=== PATIENT | female | born 1975 | race Caucasian/White ===

== ENCOUNTER 2016-10-17 19:31 | Emergency (ER) | payer OTHER, MEDICAID ==
[2016-10-17 19:57] VITALS: BP 126/93
[2016-10-17 21:04] LABS: Urine Bilirubin Negative (NEGATIVE); Urine Blood 250 /ul (NEGATIVE); Urine Ketone Negative (NEGATIVE); Urine Nitrite Negative (NEGATIVE); Urine Protein 15 mg/dL (NEGATIVE); Urine Specific Gravity >=1.030 SP.GR. (1.005-1.010); Urine Urobilinogen Normal (NORMAL); Urine pH 5.5 pH (5.0-7.0)
[2016-10-17 21:16] LABS: Urine Appearance Turbid; Urine Color Yellow; Urine RBC 25-50 /hpf (0-5); Urine WBC 25-50 /hpf (0-5)
[2016-10-17 21:17] LABS: Urine Bacteria 2+
== END 2016-10-17 22:55 | disposition left against medical advice (07) ==
LOC: ER 19:31
DX: Z53.21 Procedure and treatment not carried out due to patient leaving prior to being seen by health care provider (principal)

== ENCOUNTER 2016-10-20 11:39 | Emergency (ER) | payer OTHER, MEDICAID ==
[2016-10-20 12:03] LABS: Urine Bilirubin Negative (NEGATIVE); Urine Color Yellow; Urine Ketone Negative (NEGATIVE)
[2016-10-20 12:06] LABS: Urine Blood 150 /ul (NEGATIVE); Urine Nitrite Negative (NEGATIVE); Urine Protein Negative (NEGATIVE); Urine Urobilinogen Normal (NORMAL); Urine pH 5.5 pH (5.0-7.0)
[2016-10-20] MEDS ORDERED: NORMAL SALINE 1,000 ML IV ONE (12:06)
[2016-10-20] MEDS ORDERED: KETOROLAC TROMETHAMINE 30 MG/ML VIAL IV ONE (12:06)
[2016-10-20] MEDS ORDERED: ONDANSETRON HCL/PF 2 MG/ML VIAL IV ONE (12:07)
[2016-10-20] MEDS ORDERED: KETOROLAC TROMETHAMINE 30 MG/ML VIAL ONE (12:13)
[2016-10-20] MEDS ORDERED: ONDANSETRON HCL/PF 2 MG/ML VIAL ONE (12:13)
[2016-10-20 12:16] LABS: Urine Bacteria 2+; Urine RBC 0-5 /hpf (0-5); Urine WBC 25-50 /hpf (0-5)
[2016-10-20 12:17] LABS: Urine Appearance Slightly Cloudy
[2016-10-20] MEDS ORDERED: KETOROLAC TROMETHAMINE 60 MG/2 ML VIAL IM ONE ×2 (12:32→12:35)
[2016-10-20] MEDS ORDERED: PROMETHAZINE HCL 50 MG/ML AMPUL IM ONE ×2 (12:32→12:34)
--- NOTE | 2016-10-20 12:35 | ERNOTE ---
ER Female HPI Date of Service: 10/20/16 Stated Complaint: POST SURGERY PAIN Presenting Symptoms: other - pain in left lower flank area radiating around into groin accompained with N/V Time Seen by Provider: 10/20/16 11:55 Source: patient Exam Limitations: no limitations Immunizations: IMMUNIZATION HX Immunizations Up to Date Yes History of Influenza Vaccine Yes Hx Pneumococcal Vaccination No Allergies/Adverse Reactions: Allergies amoxicillin Adverse Reaction (Mild, Verified 10/20/16 11:50) GI UPSET cephalexin Adverse Reaction (Mild, Verified 10/20/16 11:50) GI UPSET meperidine HCl [From Demerol] Adverse Reaction (Mild, Verified 10/20/16 11:50) Vomiting Penicillins Adverse Reaction (Mild, Verified 10/20/16 11:50) GI UPSET NITRITES Adverse Reaction (Mild, Uncoded 10/20/16 11:50) NITRITE OR NITRATE PRESERVATIVES CAUSE MIGRAINES Home Medications: HOME MEDICATIONS Propranolol HCl 60 mg PO BID 08/20/15 [Last Taken 09/19/16 06:30] Topiramate [Topamax] 100 mg PO BID 08/20/15 [Last Taken 09/18/16 22:00] Aspirin [Aspirin EC] 81 mg PO DAILY #30 tablet. 08/21/15 [Last Taken Unknown] Docusate Sodium [Colace] 100 mg PO BID 08/21/15 [Last Taken 09/18/16 22:00] Albuterol Sulfate [Proventil Hfa] 2 puff INH Q4H PRN 08/20/16 [Last Taken Unknown] Cranberry Extract [Cranberry] 500 mg PO BID 08/20/16 [Last Taken Unknown] Gabapentin [Neurontin] 300 mg PO HS 08/20/16 [Last Taken 09/18/16 22:00] Loratadine [Claritin] 10 mg PO DAILY 08/20/16 [Last Taken Unknown] Meclizine HCl [Antivert] 25 mg PO TID PRN 08/20/16 [Last Taken Unknown] Melatonin/Pyridoxine HCl (B6) [Melatonin 10 mg Tablet] 1 each PO HS 08/20/16 [ Last Taken 09/18/16 22:00] Multivitamins [Multivitamin Daniela] 1 cap PO DAILY 08/20/16 [Last Taken Unknown] Naproxen Sodium [Aleve] 220 mg PO BID PRN 08/20/16 [Last Taken Unknown] Ondansetron HCl [Zofran] 4 mg PO Q4H PRN 08/20/16 [Last Taken Unknown] Rizatriptan Benzoate [Maxalt] 10 mg PO DAILY 08/20/16 [Last Taken Unknown] Venlafaxine HCl [Effexor Xr] 150 mg PO DAILY 08/20/16 [Last Taken 09/18/16 08:00 ] Oxycodone HCl/Acetaminophen [Percocet 5-325 mg Tablet] 1 each PO Q4H PRN #20 tablet 09/19/16 [Last Taken Unknown] Ciprofloxacin HCl [Cipro] 500 mg PO BID #14 tablet 10/20/16 [Last Taken Unknown] Ondansetron [Zofran Odt] 8 mg PO Q8H PRN #12 tab 10/20/16 [Last Taken Unknown] Oxycodone HCl/Acetaminophen [Percocet 5-325 mg Tablet] 1 each PO Q4H PRN #20 tablet 10/20/16 [Last Taken Unknown] Tamsulosin HCl [Flomax] 0.4 mg PO DAILY #14 cap.sr.24h 10/20/16 [Last Taken Unknown] - History of Present Illness Narrative: patient is a 41 y.o F with recent hysterectomy 09/19/16 who presents today complaining of left lower flank pain radiating into groin since Saturday. States pain and nausea progressively becoming more constant and severe since Saturday. States pain would lessen with Ibuprofen and with use of a heating pad but today home remedies are ineffective. States came here Saturday but "wait time was too long" so patient LWBS. Called Dr Corado and U/S which showed right ovarian cyst. Presents today in constant pain and nausea with multiple emesis. States had kidney stone 2 years ago and "this feels just like it" Date (Duration): 10/15/16 Timing: Present: constant, getting worse Quality: Present: moderate, stabbing Onset Location: Present: left flank Radiation: Present: groin Activities at Onset: Present: none Prior Abdominal Problems: Present: other - hysterectomy 09/19/16 Modifying Factors - (Improves): Present: other - states heating pad and ibuprofen originally helped but now is ineffective Modifying Factors - (Worsens): Present: coughing, lying down, movement, palpation, vomiting Associated Symptoms: Present: nausea, vomiting, low back pain Prior Treatment: Present: other - U/S Review of Systems - Review of Systems Constitutional: Present: See HPI, diaphoresis, other - states chills on Saturday. Absent: fever, weakness, fatigue, malaise EYE: Present: no symptoms reported ENT: Present: no symptoms reported Respiratory: Present: no symptoms reported. Absent: shortness of breath, wheezing, stridor Cardiology: Present: no symptoms reported. Absent: chest pain, palpitations, syncope Gastrointestinal/Abdominal: Present: nausea, vomiting, diarrhea, eating less, drinking less. Absent: abdominal pain Genitourinary: Present: no symptoms reported. Absent: frequency, pain, dysuria , hematuria Musculoskeletal: Present: no symptoms reported. Absent: muscle pain, neck pain Skin: Present: no symptoms reported. Absent: rash, lesions Neurological: Present: no symptoms reported. Absent: headache, weakness, numbness, tingling Endocrine: Present: no symptoms reported Hematologic/Lymphatic: Present: no symptoms reported Psych: Present: no symptoms reported - Patient's Past Medical History Patient History - Medical: Kidney stone, Migraines, Other Patient History - Cardiac/Respiratory: Asthma Patient History - Cancer: No Hx of Cancer Patient History - Surgical Procedures: D & C, Hysterectomy, Other - Family History Mother Family History - Medical: Arthritis, Hypothyroidism, Kidney stone Family History - Cardiac/Respiratory: CVA/Stroke, Hypertension, Myocardial Infarction Grandmother-Maternal Family History - Medical: , No pertinent hx Family History - Cardiac/Respiratory: No pertinent hx Father Family History - Medical: Diabetes Type 2 Family History - Cardiac/Respiratory: No pertinent hx Grandfather-Maternal Family History - Medical: , No pertinent hx Family History - Cardiac/Respiratory: Other Aunt Family History - Medical: , No pertinent hx Family History - Cardiac/Respiratory: No pertinent hx Uncle Family History - Medical: No pertinent hx Family History - Cardiac/Respiratory: No pertinent hx - Social History Living Situations: home Alcohol Use: none Drug Use: none ED Progress - Results and Orders Patient's Lab Results:: I have reviewed the patient's lab results. - Vital Signs Patient's Vital Signs:: I have reviewed the patient's vital signs. Vital Signs: Vital Signs 10/20/16 11:47 Temperature 34.4 C L Pulse Rate 78 Respiratory 14 Rate Blood Pressure 150/86 O2 Sat by Pulse 99 Oximetry - CT/Ultrasound CT/Ultrasound Narrative: Technique: CT Abdomen/Pelvis W/O Contrast Findings: Exam is limited due to lack of IV and oral contrast. Lung bases are clear. No nephrolithiasis appreciated. Reidentified parapelvic cysts on the left. There is very mild hydronephrosis. This is secondary to a 5 mm proximal left ureteral stone. No obstructive uropathy on the right. There is perinephric fat stranding and periureteric fat stranding surrounding the left kidney and ureter. Solid abdominal organs are intact and unremarkable on noncontrast imaging. No evidence for intestinal obstruction. The appendix is normal. There is diverticulosis and fecal retention without evidence for diverticulitis. The bladder is decompressed. There appears to be a 2 cm left cystic lesion within the adnexa which appears unchanged from prior exam. The uterus is surgically absent. No free air or free fluid. No loculated fluid collections. Osseous structures are intact. IMPRESSION: 1. 5 mm left proximal ureteral stone causing some mild hydronephrosis on the left. There is some periarterial fat stranding indicating inflammation. 2. Chronic findings are as detailed above Electronically signed by Cholo Thakur M.D.. - Progress/Reassessment Chief Complaint: Genitourinary Problem Progress:: Pain free at discharge Departure Clinical Impression: Ureteral colic, Ureteral calculus - Departure Disposition: Home Follow Up Needed Condition: Good Instructions: Renal Colic, [id number] Referrals: Markus Galvan MD [Associate] - Prescriptions: Ciprofloxacin HCl [Cipro] 500 mg PO BID #14 tablet Ondansetron [Zofran Odt] 8 mg PO Q8H PRN #12 tab PRN Reason: Nausea Oxycodone HCl/Acetaminophen [Percocet 5-325 mg Tablet] 1 each PO Q4H PRN #20 tablet PRN Reason: Pain Tamsulosin HCl [Flomax] 0.4 mg PO DAILY #14 cap.sr.24h
[2016-10-20 13:47] VITALS: BP 112/69
== END 2016-10-20 14:03 | disposition home or self-care (01) ==
LOC: ER 11:39
DX: N20.1 Calculus of ureter (principal); N23 Unspecified renal colic; Z90.710 Acquired absence of both cervix and uterus

== ENCOUNTER 2016-10-24 13:19 | Day surgery (SDC) | payer OTHER, MEDICAID ==
[~2016-10-24 13:19] MED LIST: KETOROLAC TROMETHAMINE 15 MG/ML VIAL IV PRN; LEVOFLOXACIN/D5W 150 ML IV PRN; METOCLOPRAMIDE HCL 5 MG/ML VIAL IV PRN; MORPHINE SULFATE 2 MG/ML DISP.SYRIN IV PRN; NORMAL SALINE 1,000 ML IV PRN; oxyCODONE HCL/ACETAMINOPHEN 1 TAB TABLET PO PRN
[2016-10-24] MEDS ORDERED: NORMAL SALINE 1,000 ML IV ONE (14:00)
--- NOTE | 2016-10-24 14:56 | OR ---
Operative Report - Dictated Report Narrative: Location: Main OR Anesthesia: General Surgeon: Dr. Aparicio Preoperative diagnosis: Left proximal ureteral stone(s) Postoperative diagnosis: Left mid/distal ureteral stone Procedure: #1 Cystoscopy with Bilateral retrograde pyelograms #2 left stone manipulation without removal with placement of a 6 x 24 double j stent Indications: 41-year-old female severe left-sided symptomatology. Discussed options with attempted trial of passage however she has failed and remain symptomatic. Wants to proceed with surgical intervention. Description: Consent obtained. Patient brought to the operating room where general endotracheal anesthesia was induced. Placed in the dorsal lithotomy position. Prepped and draped. Timeout taken. Rigid cystoscope introduced into the bladder with ease and quick cystoscopy revealed no tumors, stones or suspicious lesions . There is no evidence of active infection in the bladder. Right ureteric orifice was much narrower compared to left. Bilateral retrogrades obtained and interpreted by Dr. Galvan. Right ureter identified intubated with Super Stiff wire followed by 5 [place] Islander catheter and right retrograde obtained. 5-7 mL of Isovue was used to obtain retrograde. Distal and mid ureter without filling defects or hydronephrosis, proximal collecting system was likewise nonhydronephrotic, no obvious filling defects, delicate calyces. A few air bubbles did migrate secondary to the wire but this was confirmed on serial imaging. Prompt drainage upon removal Left ureter identified intubated with 5 [place] catheter and left retrograde obtained. Distal ureter normal up until just below the pelvic vessels where shadowing filling defect showed up consistent with ureteral stone. Ureter proximal to this was mildly hydronephrotic. Upper collecting system again mildly hydronephrotic with some blunting.. I was able to get a Super Stiff wire by the stone. I used a 5 [place] catheter to try and bumped the stone more proximally upon doing so there was prompt drainage of hydronephrotic urine urine had a gelatinous appearance to it. I aspirated some urine from the bladder sent it for culture just to make sure this wasn't infection. No rima pyuria, some blood. Dual lumen catheter introduced and the [place] wire was also advanced. [place] wire secured. Over the Super Stiff wire the flexible ureteroscope was then used and advanced into the ureter. I was able to get up the distal ureter to within 2 or 3 cm of the known location of the stone however ureteral caliber decreased significantly despite using 2 wires. With slow constant pressure and a push pull method on the scope I tried to get by the narrowing but the ureter would not give. Given this finding I felt that was in the patient's best interest to simply stent allow for passive dilation and come back at a different setting to hopefully try and avoid balloon dilation. 6 x 24 double-J stent was then placed over the safety wire under fluoroscopic guidance with good curls in the kidney and bladder. Urine sample post stone manipulation sent for culture. Specimen: Urine post manipulation for culture EBL: 5 ml Condition: tolerated procedure Important findings: Obstructing left ureteral calculus, ureteral narrowing distal to stone, successful manipulation and stenting. Some concern for possible infection on the left side based on hydronephrotic urine appearance. Follow-up: Next Saturday for definitive management. I will send her home on antibiotics.
[2016-10-24] MEDS ORDERED: MORPHINE SULFATE 4 MG/ML SYRG IV PRN (15:01)
[2016-10-24] MEDS ORDERED: NALOXONE HCL 0.4 MG/ML VIAL IV PRN (15:01)
[2016-10-24] MEDS ORDERED: diphenhydrAMINE HCL 50 MG/ML VIAL IV PRN (15:01)
[2016-10-24] MEDS ORDERED: PROMETHAZINE HCL 12.5 MG in DEXTROSE 5 % IN WATER 50 ML IV PRN ×2 (15:01)
[2016-10-24 16:39] VITALS: BP 120/72
== END 2016-10-24 13:20 | disposition home or self-care (01) ==
LOC: SUR 13:19 → AMB 13:19 → SUR 13:20
PROVIDERS: ATTEND Urology
PROC: 0TC78ZZ Extirpation of Matter from Left Ureter, Via Natural or Artificial Opening Endoscopic (ICD-10-PCS; 2016-10-24)
PROC: 0T778DZ Dilation of Left Ureter with Intraluminal Device, Via Natural or Artificial Opening Endoscopic (ICD-10-PCS; principal; 2016-10-24 17:50)
DX: N20.1 Calculus of ureter (principal)

== ENCOUNTER 2016-10-31 12:03 | Day surgery (SDC) | payer OTHER, MEDICAID ==
[~2016-10-31 12:03] MED LIST changes: -METOCLOPRAMIDE HCL 5 MG/ML VIAL IV PRN; -MORPHINE SULFATE 2 MG/ML DISP.SYRIN IV PRN
[2016-10-31] MEDS ORDERED: NORMAL SALINE 1,000 ML IV ONE (13:20)
--- NOTE | 2016-10-31 14:19 | OR ---
Operative Report - Dictated Report Narrative: Location: Main OR Anesthesia: General Surgeon: Dr. Aparicio Preoperative diagnosis: Left distal ureteral stone(s) Postoperative diagnosis: Same with very tight ureter distal to stone concerning for pre-existing stricture with extravasation noted during retrograde Procedure: #1 Cystoscopy with removal of previously placed left double-J stent, left retrograde, new 7 by multi length stent placement #2 attempted left flexible ureteroscopy failed secondary to pre-existing ureteral narrowing/stricture and evidence of ureteral extravasation during attempted ureteral dilation. Indications: 41-year-old female the pneumatic left ureteral calculus post failed trial of passage followed by left stone manipulation without removal and stenting. Ureteroscopy during original manipulation failed secondary to narrowing of distal ureter. After discussion of options patient presented today for attempted treatment after hopeful passive dilation. Description: Consent obtained. Patient brought to the operating room where general endotracheal anesthesia was induced. Placed in the dorsal lithotomy position. Prepped and draped. Timeout taken. Rigid cystoscope introduced into the bladder with ease and quick cystoscopy revealed no tumors, stones or suspicious lesions . Previously placed stent was identified grasped pulled per urethra. Super Stiff wire advanced without incident and stent removed. Wire was secured. I advanced the small flexible ureteroscope into the bladder and alongside the wire was able to intubate left ureteric orifice. I was able to advance to within a couple centimeters of the prior stone location. At that point ureter narrowed significantly. Wire was clearly intraluminal heading north. I advanced a second Super Stiff wire through the scope and tried to use both wires to bridge the ureter and navigated proximally. With slow constant pressure tried to advance but that area of ureter is definitely narrowed suspicious for pre-existing stricture. Location is a couple centimeters downstream from where stone was impacted on prior retrograde. I removed the wire leaving the scope downstream of the stricture and injected contrast to time outline length of stricture and location of stone. This was performed without incident and I could see that there is about 2 or 3 cm of ureter that are much more narrow when compared to the rest of the ureter followed by a shadowing filling defect cystoscopy with the known location of the stone. I left the safety wire in place and had nursing obtain a ureteral balloon dilator. At this point in the case portable fluoroscopy started in this behaving we needed to switch to a newer equipment. There was no advancement/ manipulation during this time. I went ahead and requested dual lumen catheter my thought being to inject contrast, try and get the stone further away from the narrowed segment of ureter to more successfully balloon and to possibly dilate stricture some get idea for how dense stricture is with this catheter. Once new fluoroscopy was established dual lumen catheter introduced navigated proximally. I injected contrast again outlining stone and strictured ureter. I slowly advanced dual lumen over Super Stiff wire there was some resistance but the ureter did start to give. As I advanced dual lumen catheter felt some gritty resistance again stone. Stopped pushing at that point and injected some contrast and could see a bit of extravasation medially. Given this finding I did not want to risk additional ureteral manipulation or did not want to balloon in this situation. As such I backed the dual lumen catheter out. I felt that was in the patient's best interest to upsize stent and again hopefully allow for passive dilation allow extravasation/perforation to subside/ heal and try to treat stone once this occurs to minimize risk to ureter. Using fluoroscopic guidance 7 by multi length stent successfully deployed. Specimen: None EBL: 5 ml Condition: tolerated procedure Important findings: Pre-existing narrowed/strictured ureter 2-3 cm in length downstream of location of ureteral calculus. Intraoperative urinary extravasation likely from attempted dilation of strictured ureter post- successful 7 [place]vian stenting. Follow-up: My plan is to go ahead and proceed in approximately a week to give ureter chance to heal and dilate with 7 [place]ian stent. Becomes a trickier surgery with the pre-existing stricture and the proximity of the stone to that strictured segment as ballooning in that area will be a bit difficult and I would much rather avoid that if possible. We'll need interventional radiology on standby given the difficulty of case so I plan on performing neck surgery in [place] in case I have trouble with ureter.
[2016-10-31] MEDS: oxyCODONE HCL/ACETAMINOPHEN 1 TAB TABLET PO PRN ×2 (15:14→15:46)
[2016-10-31 17:16] VITALS: BP 129/82
== END 2016-10-31 12:04 | disposition home or self-care (01) ==
LOC: AMB 12:03
PROVIDERS: ATTEND Urology
PROC: 0T768DZ Dilation of Right Ureter with Intraluminal Device, Via Natural or Artificial Opening Endoscopic (ICD-10-PCS; principal; 2016-10-31 14:15)
DX: N20.1 Calculus of ureter (principal); N13.5 Crossing vessel and stricture of ureter without hydronephrosis; E66.01 Morbid (severe) obesity due to excess calories; Z68.43 Body mass index [BMI] 50.0-59.9, adult

== ENCOUNTER 2016-11-07 12:56 | Day surgery (SDC) | payer OTHER, MEDICAID ==
[~2016-11-07 12:56] MED LIST changes: -KETOROLAC TROMETHAMINE 15 MG/ML VIAL IV PRN; +KETOROLAC TROMETHAMINE 30 MG/ML VIAL IV PRN; +LEVOFLOXACIN 500 MG TABLET PO PRN; -LEVOFLOXACIN/D5W 150 ML IV PRN; +METOCLOPRAMIDE HCL 5 MG/ML VIAL IV PRN; +MORPHINE SULFATE 2 MG/ML DISP.SYRIN IV PRN; -NORMAL SALINE 1,000 ML IV PRN; +ONDANSETRON HCL/PF 2 MG/ML VIAL IV PRN
[2016-11-07] MEDS ORDERED: LIDOCAINE HCL 10 APPL CARTRIDGE TP ONE (14:08)
--- NOTE | 2016-11-07 14:23 | OR ---
Operative Report - Dictated Report Narrative: Preoperative diagnosis: Indwelling stent Postoperative diagnosis: Same Anesthesia: None Procedure: Flexible cystoscopy with stent removal Indications: Indwelling stent Descritpion: Consent obtained. Patient prepped and drapped. Lidocaine jelly used to anesthetize urethra. Flexible scope inserted and navigated to bladder. Stent identified, grasped and pulled per urethra. Patient tolerated. EBL: 0 ml Specimen: None Condition: Tolerated procedure Follow-up: I will see her in roughly 1 month with ultrasound, voided urinalysis and creatinine prior. We'll discuss dietary recommendations at that time.
[2016-11-07 15:39] VITALS: BP 128/62
== END 2016-11-07 12:57 | disposition home or self-care (01) ==
LOC: AMB 12:56
PROVIDERS: ATTEND Urology
PROC: 0TP98DZ Removal of Intraluminal Device from Ureter, Via Natural or Artificial Opening Endoscopic (ICD-10-PCS; principal; 2016-11-07 14:30)
DX: N20.1 Calculus of ureter (principal); Z68.43 Body mass index [BMI] 50.0-59.9, adult

== ENCOUNTER 2017-08-08 06:05 | Day surgery (SDC) | payer OTHER ==
[~2017-08-08 06:05] MED LIST changes: +ACETAMINOPHEN 325 MG TABLET PO PRN; +DEXAMETHASONE SOD PHOSPHATE 10 MG/ML VIAL IV PRN; -KETOROLAC TROMETHAMINE 30 MG/ML VIAL IV PRN; -LEVOFLOXACIN 500 MG TABLET PO PRN; -METOCLOPRAMIDE HCL 5 MG/ML VIAL IV PRN; +MORPHINE SULFATE 10 MG/ML SYRG IV PRN; -MORPHINE SULFATE 2 MG/ML DISP.SYRIN IV PRN; +MORPHINE SULFATE 4 MG/ML SYRG IV PRN; +NORMAL SALINE 3 ML BOX IV PRN; +OXYMETAZOLINE HCL 150 SPRAY BTL NS PRN; +RINGER'S SOLUTION,LACTATED 1,000 ML IV PRN; +ceFAZolin SODIUM 1 GM in DEXTROSE 5 % IN WATER 100 ML IV PRN
[2017-08-08] MEDS ORDERED: RINGER'S SOLUTION,LACTATED 1,000 ML IV ONE ×2 (06:51→09:11)
[2017-08-08] MEDS ORDERED: OXYMETAZOLINE HCL 150 SPRAY BTL NS ONE (07:07)
[2017-08-08] MEDS ORDERED: COCAINE HCL 4 APPL BTL TP ONE (07:29)
[2017-08-08] MEDS ORDERED: LIDOCAINE HCL/EPINEPHRINE 30 ML VIAL IJ ONE ×2 (07:30)
[2017-08-08] MEDS ORDERED: MUPIROCIN 22 APPL TUBE TP ONE (07:30)
[2017-08-08] MEDS ORDERED: MORPHINE SULFATE 4 MG/ML SYRG IV PRN (09:15)
[2017-08-08] MEDS ORDERED: MORPHINE SULFATE 2 MG/ML DISP.SYRIN IV PRN (09:15)
[2017-08-08 10:15] VITALS: BP 114/65
== END 2017-08-08 06:06 | disposition home or self-care (01) ==
LOC: AMB 06:05
PROVIDERS: ATTEND Allergy & Immunology
PROC: 09BL0ZZ Excision of Nasal Turbinate, Open Approach (ICD-10-PCS; 2017-08-08)
PROC: 09H Ear, Nose, Sinus, Insertion (ICD-10-PCS; 2017-08-08)
PROC: 09SM0ZZ Reposition Nasal Septum, Open Approach (ICD-10-PCS; principal; 2017-08-08 07:00)
DX: J34.2 Deviated nasal septum (principal); J34.3 Hypertrophy of nasal turbinates; M95.0 Acquired deformity of nose; Z68.43 Body mass index [BMI] 50.0-59.9, adult
CPT/HCPCS: 30140; 30520; 30999; L8699